=== PATIENT | female | born 1975 | race Caucasian/White ===

== ENCOUNTER 2019-09-04 12:03 | Emergency (ER) | payer BC ==
--- OUTSIDE RECORDS SUMMARY | 2019-09-04 14:03 | XMS REPORT | Continuity of Care Document ---
:1975 External Reference #:[id number] Author Name ROMINA Brush (transmitted by agent of provider Yamilka Fox) Address [address] [place] [address] Care Team Providers Name Role Phone Maxime Stanton MD - Orthopaedic Care Team Information Hebrew Teacher [phone] Surgery Yasmine Mckeon PA - Physician Assistant Front End Manager Care Team Information Hebrew Teacher [phone] John Verduzco MD - Obstetrics & Care Team Information Hebrew Teacher Gynecology Rhiannon Brady M.D. - Hematology & Care Team Information Hebrew Teacher Oncology Yeni Melton MD - Surgery Care Team Information Hebrew Teacher Problems Active Problems Provider Date Allergic rhinitis Onset: 03/23/2016 Disorder of breast Onset: 03/23/2016 Generalized anxiety disorder Onset: 03/23/2016 Essential hypertension Onset: 07/03/2015 Asthma without status asthmaticus Onset: 10/28/2012 Anxiety state Onset: 10/28/2012 History of contraceptive usage Onset: 10/28/2012 Gynecologic examination Onset: 10/28/2012 Malignant neoplasm of female breast ROMINA Brush Onset: 04/13/2019 Resolved Problems Alcohol abuse ROMINA Brush Onset: 04/13/2019 Resolved: 04/13/2019 Social History Type Date Description Comments Sex Unknown ETOH Use consumed 5-6 glasses of wine per week Tobacco Use Reviewed: 10/21/16 Patient has never smoked previous 08/27/14,10/31 Smoking Status Reviewed: 07/24/19 Patient has never smoked previous 08/27/14, Allergies, Adverse Reactions, Alerts Description No Known Drug Allergies Medications Active Medications SIG Qnty Indications Ordering Date Provider Arimidex 1 by mouth daily Harsha 03/23/2016 1mg Tablets MD Gerry Albuterol Sulfate one vial via 75units [place] 09/17/2014 nebulizer every 4 MD Gerry (2.5mg/3ML) 0.083% hours as needed Nebulizer sob/wheezing Montelukast Sodium take 1 tablet by 90tabs Harsha 05/22/2013 mouth once daily MD Gerry 10mg Tablets Buspirone HCL take 1 tablet by 180tabs Harsha 06/22/2012 30mg mouth twice a day MD Gerry Tablets Advair Diskus inhale 1 dose by 180units [place] 05/09/2012 mouth twice a day MD Gerry 250-50mcg/Dose Aerosol Lorazepam one twice a day 10tabs F41.0 [place] 09/02/2011 0.5mg as needed for MD Gerry Tablets anxiety/panic Ventolin HFA inhale 2 puffs 18units Harsha 07/27/2011 every 4 hours if MD Gerry 108(90Base) mcg/Act needed for Aerosol shortness of breath History Medications Paxil one pill daily 90tabs F41.9 Harsha Garrett 04/05/2019 - 10mg as directed 07/24/2019 Tablets Immunizations Description No Information Available Vital Signs Date Vital Result Comment 07/24/2019 3:30pm Weight 203.00 lb BP Systolic Sitting 108 mmHg BP Diastolic Sitting 60 mmHg 04/05/2019 2:32pm Weight 198.19 lb BP Systolic Sitting 102 mmHg BP Diastolic Sitting 60 mmHg Results Description No Information Available Procedures Date Code Description Status 02/16/2019 28932797 Mammogram Completed 10/21/2018 108136989 Diabetic Retinal Eye Exam Completed 08/17/2017 [id number] Mammogram Completed 06/28/2015 [id number] Mammogram Completed Medical Devices Description No Information Available Encounters Type Date Location Provider Dx Diagnosis Office Visit 04/05/2019 [facility] ROMINA Brush F41.9 Anxiety disorder, 2:30p unspecified F43.23 Adjustment disorder with mixed anxiety and depressed mood Assessments Date Code Description Provider 07/24/2019 F41.9 Anxiety disorder, unspecified ROMINA Brush 07/24/2019 F43.23 Adjustment disorder with mixed anxiety and depressed ROMINA Brush mood 07/24/2019 J45.909 Asthma ROMINA Brush 07/24/2019 E78.5 Hyperlipidemia ROMINA Brush 07/24/2019 N64.9 Disorder of breast ROMINA Brush 07/24/2019 R53.83 Fatigue ROMINA Brush 04/05/2019 F41.9 Anxiety disorder, unspecified ROMINA Brush 04/05/2019 F43.23 Adjustment disorder with mixed anxiety and depressed ROMINA Brush mood Plan of Treatment Future Appointment(s):10/25/2019 4:00 pm - ROMINA Brush at [facility]08/2019 - Yasmine Mckeon PAF41.9 Anxiety disorder, unspecifiedFollow up: 1zpfvbC81.23 Adjustment disorder with mixed anxiety and depressed moodNew Labs: Basic Metabolic Panel, Ordered: 07/24/19CBC Auto Diff, Ordered: 07/24/19Liver Function Panel, Ordered: 07/24/19Lipid Profile (Trig/Chol/HDL), Ordered: TSH (Thyroid Stim Horm), Ordered: 07/24/19Hemoglobin A1c (Glyco HGB), Ordered : 07/24/19J45.909 FbxkwfS00.5 EyoneylotfywnyA86.9 Disorder of wwdqifN54.83 Fatigue Functional Status Functional Condition Comment Date Status Glasses Active Mental Status Description No Information Available Referrals Description No Information Available
[2019-09-04 14:12] VITALS: BP 125/71
--- NOTE | 2019-09-04 14:17 | UC ---
FLU HPI - HPI Summary HPI Summary: 43-year-old female who had flulike symptoms last week and is feeling better today. 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 She has not had a fever in the past 2 days. She was mostly concerned because she has a child at home. - History of Current Complaint Chief Complaint: UCGeneralIllness Stated Complaint: FLU SYMP Time Seen by Provider: 09/04/19 14:02 Hx Obtained From: Patient ?: No Onset/Duration: Gradual Onset, Resolved - Patient is feeling much better and symptoms are almost resolved. Severity Currently: Mild Severity Initially: Moderate Pain Intensity: 0 Associated Signs & Symptoms: Positive: Cough, Nasal Congestion - Patient still has mild nasal congestion and cough. No wheezing today however she did have some wheezing last night. She has a history of asthma. - Allergy/Home Medications Allergies/Adverse Reactions: Allergies Allergy/AdvReac Type Severity Reaction Status Date / Time No Known Allergies Allergy Verified 09/04/19 14:04 Home Medications: Home Medications LORazepam TAB(*) [Ativan TAB(*)] 0.5 mg PO DAILY PRN 07/26/15 [History Confirmed 09/04/19] PARoxetine HCL TAB* [Paxil TAB*] 5 mg PO DAILY 09/04/19 [History Confirmed 09/03] PMH/Surg Hx/FS Hx/Imm Hx Previously Healthy: Yes Respiratory History: Asthma Cancer History: Breast Cancer - Surgical History Surgical History: Yes Surgery Procedure, Year, and Place: 2007. bilateral oophrectomy 2018 - Family History Known Family History: Positive: Unknown - Social History Occupation: Employed Full-time Lives: With Family Alcohol Use: None Alcohol Amount: 5 CANS PER WEEK Substance Use Type: None Smoking Status (MU): Light Every Day Tobacco Smoker Amount Used/How Often: 1/4 PPD X 15 YEARS OFF AND ON Have You Smoked in the Last Year: Yes When Did the Patient Quit Smoking/Using Tobacco: Feb 2019 Review of Systems All Other Systems Reviewed And Are Negative: Yes Constitutional: Positive: Fever, Chills - Patient had fever and chills last week but that has resolved ENT: Positive: Nasal Discharge - Patient continues with mild nasal congestion Respiratory: Positive: Cough - On productive cough with occasional wheezing mostly last evening but better today.. Negative: Shortness Of Breath Musculoskeletal: Positive: Myalgia Is Patient Immunocompromised?: No Physical Exam Triage Information Reviewed: Yes Appearance: Well-Appearing, No Pain Distress, Well-Nourished Vital Signs: Initial Vital Signs Temp 97.4 F 09/04/19 14:05 Pulse 72 09/04/19 14:05 Resp 15 09/04/19 14:05 BP 125/71 09/04/19 14:05 Pulse Ox 100 09/04/19 14:05 Vital Signs Reviewed: Yes Eyes: Positive: Conjunctiva Clear ENT: Positive: Hearing grossly normal, Pharynx normal, TMs normal, Uvula midline Neck: Positive: Supple, Nontender, No Lymphadenopathy Respiratory: Positive: No respiratory distress, No accessory muscle use, Wheezing - Patient has mild expiratory wheezing with forced expiration. Good air movement throughout all lung lopez. No distress. Cardiovascular: Positive: RRR, No Murmur, Pulses Normal, Brisk Capillary Refill Musculoskeletal Exam: Normal Neurological Exam: Normal Psychological Exam: Normal Skin Exam: Normal Flu Course/Dx - Course Course Of Treatment: The patient is comfortable here and nontoxic. We discussed testing for coronavirus. The patient has had no travel in the past 2 weeks. She's had no known exposure to anyone with coronavirus and no exposure to anyone that has getting tested for coronavirus. I believe she is an extremely low risk for this. 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 She'll follow up with her primary care provider if she continues to feel she needs testing for coronavirus. The patient is agreeable to this plan of action. She has not been using her nebulizer or albuterol inhaler at home and I advised that she do this and if no improvement in the wheezing then follow-up with her primary care provider for a possible course of prednisone. - Differential Dx/Diagnosis Provider Diagnosis: Bronchitis Discharge ED - Sign-Out/Discharge Documenting (check all that apply): Patient Departure All imaging exams completed and their final reports reviewed: No Studies - Discharge Plan Condition: Good Disposition: HOME Patient Education Materials: Acute Bronchitis (ED) Referrals: Yasmine Mckeon PA [Primary Care Provider] - Additional Instructions: Increase fluids, use your albuterol inhaler or nebulizer every 4-6 hours as needed for wheezing or tight cough. Definite follow-up with your primary care provider in 3 or 4 days if no improvement. - Billing Disposition and Condition Condition: GOOD Disposition: Home
== END 2019-09-04 14:33 | disposition home or self-care (01) ==
LOC: UCCORT 12:03
DX: J45.909 Unspecified asthma, uncomplicated (principal); F17.210 Nicotine dependence, cigarettes, uncomplicated; Z80.3 Family history of malignant neoplasm of breast
CPT/HCPCS: 99211; G0463